=== PATIENT | female | born 1935 | race Caucasian/White ===

== ENCOUNTER 2021-04-17 07:14 | Emergency (ER) | payer MEDICARE ==
[~2021-04-17] VITALS: Ht 170.2 cm; Wt 80.7 kg
[2021-04-17] MEDS ORDERED: CASIRIVIMAB/IMDEVIMAB 10 ML in SODIUM CHLORIDE 0.9% 100 ML IV ONE (07:30)
[2021-04-17] MEDS ORDERED: SODIUM CHLORIDE 0.9% 100 ML ONE (07:36)
== END 2021-04-17 09:31 | disposition home or self-care (01) ==
LOC: ER 07:41
DX: U07.1 COVID-19 (principal); I10 Essential (primary) hypertension; E78.5 Hyperlipidemia, unspecified; K21.9 Gastro-esophageal reflux disease without esophagitis; M19.90 Unspecified osteoarthritis, unspecified site
CPT/HCPCS: 99283; J7050